=== PATIENT | male | born 1970 | race Two or more races ===

== ENCOUNTER 2017-08-15 21:05 | Inpatient (IN) | payer BC ==
[2017-08-15] MEDS ORDERED: KETOROLAC 30 MG/ML 1 ML VIAL IVP STA (21:25)
[2017-08-15] MEDS ORDERED: RX INFO: IV CONTRAST WAS GIVEN 1 EACH MISC MISCELLANE PRN (21:25)
[2017-08-15] MEDS ORDERED: SODIUM CHLORIDE 0.9% 1,000 ML IV STA (21:25)
--- NOTE | 2017-08-15 21:28 | ED ---
Abdominal Pain HPI <Carroll Alves - Last Filed: 08/15/17 22:53> - General Source: patient Mode of arrival: ambulatory Limitations: no limitations <Tiffanie Valdez - Last Filed: 08/16/17 00:49> - General Chief Complaint: Abdominal Pain Stated Complaint: abdominal pain Time Seen by Provider: 08/15/17 21:20 - History of Present Illness Initial Comments: 47-year-old male patient presents to the emergency department today for evaluation of diarrhea and lower abdominal pain. Patient states he has had 3-4 liquidy bowel movements per day for the last 2-3 days. States that this evening he started to have sharp stabbing pain in his lower abdomen. Patient denies any hematochezia or melena. Denies any nausea or vomiting. Denies any fevers or chills with this. Patient denies history of similar symptoms. 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 Denies any sick contacts. Patient denies any recent rash, shortness breath, chest pain, back pain, numbness, tingling, dizziness, weakness, hematuria, dysuria, urinary urgency, urinary frequency, headache, visual changes, or any other complaints. (Tiffanie Valdez) - Related Data Home Medications Medication Instructions Recorded Confirmed Albuterol Inhaler [Ventolin Hfa 2 puff INHALATION RT-Q6H PRN 08/15/17 08/15/17 Inhaler] Dexlansoprazole [Dexilant] 60 mg PO DAILY 08/15/17 08/15/17 Ipratropium/Albuterol Sulfate 1 puff INHALATION RT-QID 08/15/17 08/15/17 [Combivent Respimat Inhaler] Allergies Allergy/AdvReac Type Severity Reaction Status Date / Time No Known Allergies Allergy Verified 08/15/17 22:04 Review of Systems ROS Other: All systems not noted in ROS Statement are negative. <Carroll Alves - Last Filed: 08/15/17 22:53> ROS Other: All systems not noted in ROS Statement are negative. <Tiffanie Valdez - Last Filed: 08/16/17 00:49> ROS Statement: Those systems with pertinent positive or pertinent negative responses have been documented in the HPI. Past Medical History Past Medical History: Asthma History of Any Multi-Drug Resistant Organisms: None Reported Past Surgical History: Tonsillectomy Past Psychological History: No Psychological Hx Reported Smoking Status: Current every day smoker Past Alcohol Use History: None Reported Past Drug Use History: None Reported <Tiffanie Valdez - Last Filed: 08/16/17 00:49> General Exam Limitations: no limitations General appearance: alert, in no apparent distress, other (This is a well- developed, well-nourished adult male patient in no acute distress. Vital signs upon presentation are temperature 97.6F, pulse 68, respirations 20, blood pressure 111/92, pulse ox 97% on room air.) Eye exam: Present: normal appearance, PERRL, EOMI. Absent: scleral icterus, conjunctival injection, periorbital swelling ENT exam: Present: normal exam, normal oropharynx, mucous membranes moist Respiratory exam: Present: normal lung sounds bilaterally. Absent: respiratory distress, wheezes, rales, rhonchi, stridor Cardiovascular Exam: Present: regular rate, normal rhythm, normal heart sounds. Absent: systolic murmur, diastolic murmur, rubs, gallop, clicks GI/Abdominal exam: Present: soft, tenderness (Left lower quadrant tenderness), normal bowel sounds. Absent: distended, guarding, rebound, rigid Neurological exam: Present: alert, oriented X3, CN II-XII intact Psychiatric exam: Present: normal affect, normal mood Skin exam: Present: warm, dry, intact, normal color. Absent: rash <Tiffanie Valdez - Last Filed: 08/16/17 00:49> Vital Signs 08/15/17 08/15/17 08/16/17 21:10 22:51 00:03 Temperature 97.6 F 97.1 F L 97.7 F Pulse Rate 68 62 57 L Respiratory 20 18 18 Rate Blood Pressure 111/92 124/76 119/76 O2 Sat by Pulse 97 99 98 Oximetry Medical Decision Making - Lab Data Result diagrams: 08/15/17 21:36 08/15/17 21:36 <Carroll Alves - Last Filed: 08/15/17 22:53> - Lab Data Result diagrams: 08/15/17 21:36 08/15/17 21:36 - Radiology Data Radiology results: report reviewed, image reviewed <Tiffanie Valdez - Last Filed: 08/16/17 00:49> - Medical Decision Making I saw this patient in conjunction with the physician assistant professor sculpture. I performed independent history and physical exam. Agree with case management. (Carroll Alves) 47-year-old male patient presents to the emergency department today for evaluation of left lower quadrant abdominal pain and diarrhea 3-4 days. Physical examination did reveal tenderness to the left lower quadrant. Patient was afebrile, vital signs stable. Labs reviewed and are unremarkable. We did perform computed tomography scan of the abdomen and pelvis given his left lower quadrant tenderness and this did show possible diverticulitis with free air near the sigmoid and descending colon. My attending Dr. Alves did speak to Dr. Mccord the surgeon fire protection inspector, she accepts admission. Patient is to be nothing by mouth except for medications and water. Levaquin and Flagyl will be started. IV fluids will be provided. All results and plan discussed with patient. (Tiffanie Valdez) - Lab Data Lab Results 08/15/17 08/15/17 08/15/17 Range/Units 21:36 21:36 22:50 WBC 9.6 (3.8-10.6) k/uL RBC 5.65 (4.30-5.90) m/uL Hgb 17.1 (13.0-17.5) gm/dL Hct 51.3 (39.0-53.0) % MCV 90.8 (80.0-100.0) fL MCH 30.2 (25.0-35.0) pg MCHC 33.3 (31.0-37.0) g/dL RDW 13.3 (11.5-15.5) % Plt Count 235 (150-450) k/uL Neutrophils % 60 % Lymphocytes % 31 % Monocytes % 4 % Eosinophils % 1 % Basophils % 1 % Neutrophils # 5.8 (1.3-7.7) k/uL Lymphocytes # 3.0 (1.0-4.8) k/uL Monocytes # 0.4 (0-1.0) k/uL Eosinophils # 0.1 (0-0.7) k/uL Basophils # 0.1 (0-0.2) k/uL Sodium 143 (137-145) mmol/L Potassium 4.8 (3.5-5.1) mmol/L Chloride 105 (98-107) mmol/L Carbon Dioxide 26 (22-30) mmol/L Anion Gap 12 mmol/L BUN 20 (9-20) mg/dL Creatinine 0.84 (0.66-1.25) mg/dL Est GFR (CKD-EPI)AfAm >90 (>60 ml/min/1.73 sqM) Est GFR (CKD-EPI)NonAf >90 (>60 ml/min/1.73 sqM) Glucose 83 (74-99) mg/dL Calcium 9.6 (8.4-10.2) mg/dL Total Bilirubin 0.5 (0.2-1.3) mg/dL AST 23 (17-59) U/L ALT 34 (21-72) U/L Alkaline Phosphatase 42 (38-126) U/L Total Protein 7.2 (6.3-8.2) g/dL Albumin 4.6 (3.5-5.0) g/dL Amylase 59 (30-110) U/L Lipase 93 (23-300) U/L Urine Color Yellow Urine Appearance Clear (Clear) Urine pH 6.0 (5.0-8.0) Ur Specific Ware 1.033 (1.001-1.035) Urine Protein Negative (Negative) Urine Glucose (UA) Negative (Negative) Urine Ketones Negative (Negative) Urine Blood Negative (Negative) Urine Nitrite Negative (Negative) Urine Bilirubin Negative (Negative) Urine Urobilinogen <2.0 (<2.0) mg/dL Ur Leukocyte Esterase Negative (Negative) - Radiology Data CT of the abdomen and pelvis was obtained. Report was reviewed in its entirety. Impression by Dr. Spivey shows inflammatory changes around the lower descending colon and proximal sigmoid colon consistent with colitis or diverticulitis. There is also localized free air on the bowel. Follow-up is recommended. (Tiffanie Valdez) Disposition <Carroll Alves - Last Filed: 08/15/17 22:53> Decision to Admit Reason: Admit from EC Decision Date: 08/15/17 Decision Time: 23:36 <Tiffanie Valdez - Last Filed: 08/16/17 00:49> Clinical Impression: Perforated diverticulum, Diverticulitis Disposition: ADMITTED IP TO THIS [facility] Condition: Serious
[2017-08-15 21:47] LABS: Basophils # (A) 0.1 k/uL (0-0.2); Basophils % (A) 1 %; Eosinophils # (A) 0.1 k/uL (0-0.7); Eosinophils % (A) 1 %; HCT 51.3 % (39.0-53.0); HGB 17.1 gm/dL (13.0-17.5); Lymphocytes % (A) 31 %; MCH 30.2 pg (25.0-35.0); MCHC 33.3 g/dL (31.0-37.0); MCV 90.8 fL (80.0-100.0); Monocytes # (A) 0.4 k/uL (0-1.0); Monocytes % (A) 4 %; Neutrophils # (A) 5.8 k/uL (1.3-7.7); Neutrophils % (A) 60 %; Platelet Count 235 k/uL (150-450); RBC 5.65 m/uL (4.30-5.90); RDW 13.3 % (11.5-15.5); WBC 9.6 k/uL (3.8-10.6)
[2017-08-15 21:57] LABS: ALT 34 U/L (21-72); AST 23 U/L (17-59); Albumin 4.6 g/dL (3.5-5.0); Alkaline Phosphatase 42 U/L (38-126); Amylase 59 U/L (30-110); Anion Gap 12 mmol/L; Blood Urea Nitrogen 20 mg/dL (9-20); Calcium 9.6 mg/dL (8.4-10.2); Carbon Dioxide 26 mmol/L (22-30); Chloride 105 mmol/L (98-107); Glucose 83 mg/dL (74-99); Lipase 93 U/L (23-300); Potassium 4.8 mmol/L (3.5-5.1); Sodium 143 mmol/L (137-145); Total Bilirubin 0.5 mg/dL (0.2-1.3); Total Protein 7.2 g/dL (6.3-8.2)
[2017-08-15] MEDS ORDERED: MORPHINE SULFATE 4 MG/ML SYRINGE IVP STA (22:44)
--- NOTE | 2017-08-15 22:52 | CT ---
EXAMINATION TYPE: CT abdomen pelvis w con DATE OF EXAM: 08/15/2017 COMPARISON: NONE HISTORY: LLQ pain today CT DLP: 863 mGycm Automated exposure control for dose reduction was used. TECHNIQUE: Helical acquisition of images was performed from the lung bases through the pelvis. CONTRAST: Performed without Oral Contrast and with IV Contrast, patient injected with 100 mL of Isovue 300. FINDINGS: The lung bases are clear. There is no pleural effusion. Heart size is normal. Liver spleen pancreas gallbladder appear normal. Bile ducts are not dilated. There is no adrenal mass . Kidneys show satisfactory contrast opacification. There is no hydronephrosis. There is no retroperi toneal adenopathy. Abdominal aorta has normal size. There is no aneurysm. There is mild fat stranding around the proximal sigmoid colon and descending colon. Bladder distends smoothly. There is a 1 cm cortical cyst on the lateral right kidney. There is no ascites. There is no evidence of a pelvic mass. Bony structures are intact. There appears to be localized free air around the lower descending colon. The small bowel appears normal. Appendix appears normal. IMPRESSION: THERE ARE INFLAMMATORY CHANGES AROUND THE LOWER DESCENDING COLON AND PROXIMAL SIGMOID COLON CONSISTEN T WITH COLITIS OR DIVERTICULITIS. THERE IS ALSO LOCALIZED FREE AIR AROUND THE BOWEL. FOLLOW-UP IS REC OMMENDED. THIS EXAM WAS DISCUSSED WITH THE ER PHYSICIAN AT 10:45 PM.
[2017-08-15 23:04] LABS: Appearance,Urine Clear (Clear); Bilirubin,Urine Negative (Negative); Blood,Urine Negative (Negative); Color,Urine Yellow; Glucose,Urine (UA) Negative (Negative); Ketones,Urine Negative (Negative); Leukocyte Esterase,Urine Negative (Negative); Nitrite,Urine Negative (Negative); Protein,Urine Negative (Negative); Specific Gravity,Urine 1.033 (1.001-1.035); Urobilinogen,Urine <2.0 mg/dL (<2.0)
[2017-08-15] MEDS ORDERED: ONDANSETRON 4 MG/2 ML VIAL IVP PRN (23:32)
[2017-08-15] MEDS ORDERED: NALOXONE 0.4 MG/ML 1 ML VIAL IV PRN (23:32)
[2017-08-15] MEDS ORDERED: LEVOFLOXACIN 500MG-D5W PMX 500 MG in DEXTROSE/WATER 1 100ML.BAG IVPB STA (23:34)
[2017-08-15] MEDS ORDERED: LEVOFLOXACIN 500MG-D5W PMX 500 MG in DEXTROSE/WATER 1 100ML.BAG IVPB SCH (23:45)
[2017-08-15] MEDS ORDERED: LEVOFLOXACIN 750MG-D5W PMX 750 MG in DEXTROSE/WATER 1 150ML.BAG IVPB STA (23:49)
[2017-08-16] MEDS: SODIUM CHLORIDE 0.9% 1,000 ML IV SCH ×3 (00:05→14:05)
[2017-08-16] MEDS: metroNIDAZOLE-NS PMX 500 MG in SALINE 1 100ML.BAG IVPB STA ×2 (01:07→02:32)
[2017-08-16] MEDS: MORPHINE SULFATE 4 MG/ML SYRINGE IV PRN ×3 (03:49→12:16)
[2017-08-16] MEDS: metroNIDAZOLE-NS PMX 500 MG in SALINE 1 100ML.BAG IVPB SCH ×2 (07:57→16:33)
[2017-08-16 08:33] LABS: Basophils # (A) 0.1 k/uL (0-0.2); Basophils % (A) 1 %; Eosinophils # (A) 0.1 k/uL (0-0.7); Eosinophils % (A) 1 %; HCT 46.6 % (39.0-53.0); HGB 15.3 gm/dL (13.0-17.5); Lymphocytes # (A) 2.4 k/uL (1.0-4.8); Lymphocytes % (A) 23 %; MCH 29.9 pg (25.0-35.0); MCHC 32.9 g/dL (31.0-37.0); MCV 91.1 fL (80.0-100.0); Mean Platelet Volume 7.5; Monocytes # (A) 0.5 k/uL (0-1.0); Monocytes % (A) 5 %; Neutrophils # (A) 7.2 k/uL (1.3-7.7); Neutrophils % (A) 69 %; Platelet Count 226 k/uL (150-450); RBC 5.11 m/uL (4.30-5.90); RDW 13.3 % (11.5-15.5); WBC 10.4 k/uL (3.8-10.6)
[2017-08-16 09:03] LABS: Anion Gap 8 mmol/L; Blood Urea Nitrogen 21 mg/dL (9-20); Calcium 8.9 mg/dL (8.4-10.2); Carbon Dioxide 26 mmol/L (22-30); Chloride 108 mmol/L (98-107); Glucose 86 mg/dL (74-99); Potassium 4.7 mmol/L (3.5-5.1); Sodium 142 mmol/L (137-145)
[2017-08-16 11:48] VITALS: BMI 28.5
[2017-08-16] MEDS ORDERED: ALBUTEROL NEBULIZED 2.5 MG/3 ML INHALATION PRN (12:59)
[2017-08-16] MEDS ORDERED: NON-FORMULARY DRUG (Dexlansoprazole [Dexilant] 60 MG) PO SCH (13:00)
--- NOTE | 2017-08-16 13:12 | P.GSHP ---
<Mariaelena Shafer M - Last Filed: 08/16/17 12:52> History of Present Illness H&P Date: 08/16/17 47-year-old male presented on the day of admission to the emergency room to be evaluated for a chief complaint of developing intolerable intractable severe left lower quadrant abdominal pain. Patient stated that the symptoms started 3 days prior became more symptomatic and on the day of admission to the emergency room could not tolerate the pain. 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 States it was no blood in the stool. Patient denies any prior episodes. States over the last several days has had a poor appetite with poor oral intake due to the " left lower quadrant abdominal pain Patient states he has not had a colonoscopy in the past. Past surgical history of tonsillectomy, past medical history asthma. In the emergency room CAT scan of the abdomen pelvis showed diverticulitis with questionable free air around the lower descending colon patient was admitted to the services of the attending with IV fluid and IV antibiotics Flagyl and Levaquin initiated - Review of Systems Comment: Essentially unremarkable except as mentioned in the present illness Past Medical History Past Medical History: Asthma History of Any Multi-Drug Resistant Organisms: None Reported Past Surgical History: Tonsillectomy Past Anesthesia/Blood Transfusion Reactions: No Reported Reaction Past Psychological History: No Psychological Hx Reported Smoking Status: Current every day smoker Past Alcohol Use History: None Reported Past Drug Use History: None Reported Medications and Allergies Home Medications Medication Instructions Recorded Confirmed Type Albuterol Inhaler [Ventolin Hfa 2 puff INHALATION RT-Q6H PRN 08/15/17 08/15/17 History Inhaler] Dexlansoprazole [Dexilant] 60 mg PO DAILY 08/15/17 08/15/17 History Ipratropium/Albuterol Sulfate 1 puff INHALATION RT-QID 08/15/17 08/15/17 History [Combivent Respimat Inhaler] Allergies Allergy/AdvReac Type Severity Reaction Status Date / Time No Known Allergies Allergy Verified 08/15/17 22:04 Surgical - Exam Vital Signs Temp Pulse Resp BP Pulse Ox 97.6 F 68 20 111/92 97 08/15/17 21:10 08/15/17 21:10 08/15/17 21:10 08/15/17 21:10 08/15/17 21:10 GENERAL APPEARANCE: 47-year-old male patient is alert, oriented x 3 states has left lower quadrant abdominal discomfort pain medication "decreases it but it still hurts VITAL SIGNS: Reviewed HEENT: Head is normocephalic and atraumatic. Pupils are equal and reactive. The nares are patent. Oropharynx is clear without lesions. NECK: Supple without lymphadenopathy. Traches midline. HEART: S1, S2. Regular rate and rhythm. No murmur noted denying chest pain LUNGS: No crackles or wheezes are heard. Adequate air movement bilaterally ABDOMEN: Soft, mild tenderness to the left lower quadrant nondistended with good bowel sounds. No peritoneal signs. No palpable organomegaly or masses. EXTREMITIES: Normal skin color and turgor. No cyanosis, rash, ulceration, clubbing or edema. Radial pedal pulses are 2/4 bilaterally. NEUROLOGICAL: No focal deficits. Strength and sensation are grossly intact. Results - Labs 08/16/17 08:01 08/16/17 08:01 Abnormal Lab Results - Last 24 Hours (Table) 08/16/17 Range/Units 08:01 Chloride 108 H (98-107) mmol/L BUN 21 H (9-20) mg/dL Diabetes panel 08/15/17 08/16/17 Range/Units 21:36 08:01 Sodium 143 142 (137-145) mmol/L Potassium 4.8 4.7 (3.5-5.1) mmol/L Chloride 105 108 H (98-107) mmol/L Carbon Dioxide 26 26 (22-30) mmol/L BUN 20 21 H (9-20) mg/dL Creatinine 0.84 0.84 (0.66-1.25) mg/dL Glucose 83 86 (74-99) mg/dL Calcium 9.6 8.9 (8.4-10.2) mg/dL AST 23 (17-59) U/L ALT 34 (21-72) U/L Alkaline Phosphatase 42 (38-126) U/L Total Protein 7.2 (6.3-8.2) g/dL Albumin 4.6 (3.5-5.0) g/dL Calcium panel 08/15/17 08/16/17 Range/Units 21:36 08:01 Calcium 9.6 8.9 (8.4-10.2) mg/dL Albumin 4.6 (3.5-5.0) g/dL Pituitary panel 08/15/17 08/16/17 Range/Units 21:36 08:01 Sodium 143 142 (137-145) mmol/L Potassium 4.8 4.7 (3.5-5.1) mmol/L Chloride 105 108 H (98-107) mmol/L Carbon Dioxide 26 26 (22-30) mmol/L BUN 20 21 H (9-20) mg/dL Creatinine 0.84 0.84 (0.66-1.25) mg/dL Glucose 83 86 (74-99) mg/dL Calcium 9.6 8.9 (8.4-10.2) mg/dL Adrenal panel 08/15/17 08/16/17 Range/Units 21:36 08:01 Sodium 143 142 (137-145) mmol/L Potassium 4.8 4.7 (3.5-5.1) mmol/L Chloride 105 108 H (98-107) mmol/L Carbon Dioxide 26 26 (22-30) mmol/L BUN 20 21 H (9-20) mg/dL Creatinine 0.84 0.84 (0.66-1.25) mg/dL Glucose 83 86 (74-99) mg/dL Calcium 9.6 8.9 (8.4-10.2) mg/dL Total Bilirubin 0.5 (0.2-1.3) mg/dL AST 23 (17-59) U/L ALT 34 (21-72) U/L Alkaline Phosphatase 42 (38-126) U/L Total Protein 7.2 (6.3-8.2) g/dL Albumin 4.6 (3.5-5.0) g/dL Assessment and Plan Assessment: Impression Present on admission left lower quadrant abdominal pain likely due to acute diverticulitis Present on admission mild leukocytosis suspect reactive Present on admission nausea vomiting frequent stooling suspect due to acute diverticulitis CAT scan abdomen and pelvis images show possible diverticulitis with free air near the sigmoid and descending colon Asthma with no evidence of an exacerbation Plan Increase IV fluid 125 an hour Ice chips with medication otherwise nothing by mouth IV antibiotic Flagyl and Levaquin as ordered Pain control DVT and GI prophylaxis Further surgical recommendations pending will follow clinical course closely The above impression and plan of care have been discussed and directed by signing physician. Mariaelena Shafer nurse practitioner acting as scribe for signing physician. <FlexMarli N - Last Filed: 08/16/17 15:14> Surgical - Exam Vital Signs Temp Pulse Resp BP Pulse Ox 97.6 F 68 20 111/92 97 08/15/17 21:10 08/15/17 21:10 08/15/17 21:10 08/15/17 21:10 08/15/17 21:10 Results - Labs 08/16/17 08:01 08/16/17 08:01 Abnormal Lab Results - Last 24 Hours (Table) 08/16/17 Range/Units 08:01 Chloride 108 H (98-107) mmol/L BUN 21 H (9-20) mg/dL Diabetes panel 08/15/17 08/16/17 Range/Units 21:36 08:01 Sodium 143 142 (137-145) mmol/L Potassium 4.8 4.7 (3.5-5.1) mmol/L Chloride 105 108 H (98-107) mmol/L Carbon Dioxide 26 26 (22-30) mmol/L BUN 20 21 H (9-20) mg/dL Creatinine 0.84 0.84 (0.66-1.25) mg/dL Glucose 83 86 (74-99) mg/dL Calcium 9.6 8.9 (8.4-10.2) mg/dL AST 23 (17-59) U/L ALT 34 (21-72) U/L Alkaline Phosphatase 42 (38-126) U/L Total Protein 7.2 (6.3-8.2) g/dL Albumin 4.6 (3.5-5.0) g/dL Calcium panel 08/15/17 08/16/17 Range/Units 21:36 08:01 Calcium 9.6 8.9 (8.4-10.2) mg/dL Albumin 4.6 (3.5-5.0) g/dL Pituitary panel 08/15/17 08/16/17 Range/Units 21:36 08:01 Sodium 143 142 (137-145) mmol/L Potassium 4.8 4.7 (3.5-5.1) mmol/L Chloride 105 108 H (98-107) mmol/L Carbon Dioxide 26 26 (22-30) mmol/L BUN 20 21 H (9-20) mg/dL Creatinine 0.84 0.84 (0.66-1.25) mg/dL Glucose 83 86 (74-99) mg/dL Calcium 9.6 8.9 (8.4-10.2) mg/dL Adrenal panel 08/15/17 08/16/17 Range/Units 21:36 08:01 Sodium 143 142 (137-145) mmol/L Potassium 4.8 4.7 (3.5-5.1) mmol/L Chloride 105 108 H (98-107) mmol/L Carbon Dioxide 26 26 (22-30) mmol/L BUN 20 21 H (9-20) mg/dL Creatinine 0.84 0.84 (0.66-1.25) mg/dL Glucose 83 86 (74-99) mg/dL Calcium 9.6 8.9 (8.4-10.2) mg/dL Total Bilirubin 0.5 (0.2-1.3) mg/dL AST 23 (17-59) U/L ALT 34 (21-72) U/L Alkaline Phosphatase 42 (38-126) U/L Total Protein 7.2 (6.3-8.2) g/dL Albumin 4.6 (3.5-5.0) g/dL
[2017-08-16] MEDS: PANTOPRAZOLE 40 MG/10 ML VIAL IVP SCH ×2 (14:05→16:34)
--- NOTE | 2017-08-16 15:13 | P.PN ---
Progress Note - Text Progress Note Date: 08/16/17 Patient seen and evaluated. Nontoxic in appearance. Pain is controlled. He reports epigastric pain for several days with GERD. Discussion of laparotomy and colostomy were described. Patient is clinically stable. Recommend bowel rest and antibiotics.
[2017-08-16] MEDS: IPRATROPIUM-ALBUTEROL 3 ML NEB INHALATION SCH ×2 (15:57→19:40)
[2017-08-16] MEDS: LEVOFLOXACIN 750MG-D5W PMX 750 MG in DEXTROSE/WATER 1 150ML.BAG IVPB SCH (23:09)
[2017-08-17] MEDS: metroNIDAZOLE-NS PMX 500 MG in SALINE 1 100ML.BAG IVPB SCH ×4 (00:46→23:59)
[2017-08-17] MEDS: IPRATROPIUM-ALBUTEROL 3 ML NEB INHALATION SCH ×5 (02:37→19:53)
[2017-08-17] MEDS: SODIUM CHLORIDE 0.9% 1,000 ML IV SCH ×6 (06:00→22:03)
[2017-08-17] MEDS: PANTOPRAZOLE 40 MG/10 ML VIAL IVP SCH (08:00)
--- NOTE | 2017-08-17 12:21 | P.PN ---
Subjective Progress Note Date: 08/17/17 Principal diagnosis: Perforated diverticulitis The patient is a 47 year old male who presented with localized perforated diverticulitis. He is feeling much better. He has ambulated over 50 times in less than 3 hrs! He complains mostly of epigastric and substernal pain for which has been ongoing for weeks and unimproved with antacids. No fevers or chills. He has passed flatus and now has soft bowel movement. Objective - Vital Signs Vital signs: Vital Signs Temp 98.2 F 08/17/17 07:58 Pulse 68 08/17/17 07:58 Resp 18 08/17/17 07:58 BP 114/61 08/17/17 07:58 Pulse Ox 98 08/17/17 07:58 Intake & Output 08/16/17 08/17/17 08/17/17 18:59 06:59 18:59 Intake Total 1500 Output Total 500 Balance -500 1500 Weight 95.254 kg Intake: Intake, IV Titration 1500 Amount Levofloxacin 750Mg-D5w 150 Pmx 750 mg In Dextrose/ Water 1 150ml.bag @ 100 mls/hr IVPB Q24H [facility] Rx#: [id number] Sodium Chloride 0.9% 1, 1250 000 ml @ 125 mls/hr IV . Q8H [facility] Rx#:[id number] metroNIDAZOLE-NS PMX 500 100 mg In Saline 1 100ml.bag @ 100 mls/hr IVPB Q8HR [facility] Rx#:[id number] Output: Urine 500 Other: Voiding Method Urinal Toilet Toilet Urinal Urinal # Voids 1 - Exam GENERAL: Well-developed pleasant in no acute distress. HEENT: No scleral icterus. Extraocular movements grossly intact. Moist buccal mucosa. NECK: Supple without lymphadenopathy. CHEST: Unlabored respirations. Equal bilateral excursions. CARDIOVASCULAR: Regular rate and rhythm. Distal 2+ pulses. ABDOMEN: Soft, nondistended. No peritoneal signs. Minimal left lower quadrant pain moderately improved. Has present epigastric pain. MUSCULOSKELETAL: No clubbing, cyanosis, or edema. NEURO: No focal or lateralizing signs PSYCH: Appropriate affect. Alert and oriented to person, place, and time. SKIN: Well perfused and good skin turgor. No jaundice. - Labs CBC & Chem 7: 08/16/17 08:01 08/16/17 08:01 Assessment and Plan (1) Sigmoid diverticulitis Current Visit: Yes Status: Acute Code(s): K57.32 - DVTRCLI OF LG INT W/O PERFORATION OR ABSCESS W/O BLEEDING SNOMED Code(s): 255928981 (2) Left lower quadrant pain Current Visit: Yes Status: Acute Code(s): R10.32 - LEFT LOWER QUADRANT PAIN SNOMED Code(s): 156117937 (3) Epigastric abdominal pain Current Visit: Yes Status: Acute Code(s): R10.13 - EPIGASTRIC PAIN SNOMED Code(s): 98174628 (4) Substernal pain Current Visit: Yes Status: Acute Code(s): R07.2 - PRECORDIAL PAIN SNOMED Code(s): 0459203 (5) Perforated diverticulum Current Visit: Yes Status: Acute Code(s): K57.80 - DVTRCLI OF INTEST, PART UNSP, W PERF AND ABSCESS W/O BLEED SNOMED Code(s): 26808770 Plan: 1. His long standing chest and epigastric discomfort despite antacid therapy is highly suspicious for gallbladder etiology. 2. Will obtain HIDA scan and US of the gallbladder. 3. GI cocktail for symptoms. 4. Seperately, will re-evaluated cardiac and pulmonary causes. 5. Potentially, an esophageal dysmotility may be the cause of his symptoms. For further evaluation, outpatient manometry advised. 6. Will start liquid diet after tests today. 7. Recommend EGD. 8. Potential discharge in 48 to 72 hours pending clinical response. 9. Elective sigmoid resection feasible once acute attack resolves.
[2017-08-17 12:45] LABS: Basophils # (A) 0.1 k/uL (0-0.2); Basophils % (A) 0 %; Eosinophils % (A) 0 %; HGB 16.3 gm/dL (13.0-17.5); Lymphocytes # (A) 2.7 k/uL (1.0-4.8); Lymphocytes % (A) 25 %; MCH 29.9 pg (25.0-35.0); MCHC 33.4 g/dL (31.0-37.0); MCV 89.7 fL (80.0-100.0); Mean Platelet Volume 7.5; Monocytes # (A) 0.5 k/uL (0-1.0); Monocytes % (A) 5 %; Neutrophils # (A) 7.5 k/uL (1.3-7.7); Neutrophils % (A) 68 %; Platelet Count 264 k/uL (150-450); RBC 5.46 m/uL (4.30-5.90); RDW 13.2 % (11.5-15.5)
[2017-08-17] MEDS ORDERED: MAG HYDROX/AL HYDROX/SIMETH 30 ML, HYOSCYAMINE ELIXIR 10 ML, CIMETIDINE HCL 300 MG PO ONE ×3 (13:00)
--- NOTE | 2017-08-17 16:39 | NM ---
EXAMINATION TYPE: NM hepatobiliary wo EF DATE OF EXAM: 08/17/2017 COMPARISON: CT 08/15/2017 HISTORY: Cholecystitis TECHNIQUE: After the intravenous administration of 5.23 mCi Tc 99m Mebrofenin hepatobiliary scintigra phy is performed. Immediate images post injection. FINDINGS: The liver shows prompt homogenous uptake of the radio pharmaceutical. Gallbladder is not visualized d uring the first hour. Small bowel activity is detected by 14 minutes. Biliary activity detected by 10 minutes. Delayed images show diminutive gallbladder. This is noted at 2 hours. IMPRESSION: Correlate for possible chronic cholecystitis. Ejection fraction was not calculated due to delayed visualization and lack of radiopharmaceutical within the liver on two-hour images.
--- NOTE | 2017-08-17 16:47 | XR ---
EXAMINATION TYPE: XR chest 2V DATE OF EXAM: 08/17/2017 COMPARISON: NONE HISTORY: Chest pain TECHNIQUE: Frontal and lateral views of the chest are obtained. FINDINGS: There is no focal air space opacity, pleural effusion, or pneumothorax seen. The cardiac silhouette size is within normal limits. The osseous structures are intact. IMPRESSION: No acute cardiopulmonary process.
--- NOTE | 2017-08-17 17:50 | US ---
EXAMINATION TYPE: US gallbladder DATE OF EXAM: 08/17/2017 COMPARISON: CT 08/15/2017 CLINICAL HISTORY: Cholecystitis. epigastric pressure EXAM MEASUREMENTS: Liver Length: Enlarged Gallbladder Wall: 0.2 cm CBD: 0.4 cm CHD: 0.3 cm Right Kidney: 12.5 x 6.9 x 4.9 cm Pancreas: Obscured by bowel gas Liver: There is coarse echotexture present Gallbladder: wnl Evidence for sonographic Park's sign: neg CBD: wnl CHD: wnl Right Kidney: Lateral hypoechoic appearing lesion with septation= 1.2 x 1.0x 1.2 cm, not simple cyst ic, cortical medullary differentiation is maintained There is no ascites. IMPRESSION: Hepatomegaly, there may be underlying hepatocellular disease or hepatic steatosis. Indete rminate hypoechoic focus associated with the right kidney, follow-up recommended.
[2017-08-17] MEDS: MAG HYDROX/AL HYDROX/SIMETH 30 ML, HYOSCYAMINE ELIXIR 10 ML, CIMETIDINE HCL 300 MG, LID... PO SCH ×4 (21:57)
[2017-08-17] MEDS: LEVOFLOXACIN 750MG-D5W PMX 750 MG in DEXTROSE/WATER 1 150ML.BAG IVPB SCH (21:58)
[2017-08-18] MEDS: metroNIDAZOLE-NS PMX 500 MG in SALINE 1 100ML.BAG IVPB SCH ×2 (07:18→16:24)
[2017-08-18] MEDS: PANTOPRAZOLE 40 MG/10 ML VIAL IVP SCH (07:18)
[2017-08-18] MEDS: IPRATROPIUM-ALBUTEROL 3 ML NEB INHALATION SCH ×3 (07:24→18:54)
[2017-08-18 08:31] LABS: Basophils # (A) 0.1 k/uL (0-0.2); Basophils % (A) 1 %; Eosinophils # (A) 0.1 k/uL (0-0.7); Eosinophils % (A) 1 %; HCT 47.3 % (39.0-53.0); HGB 15.6 gm/dL (13.0-17.5); Lymphocytes # (A) 2.1 k/uL (1.0-4.8); Lymphocytes % (A) 26 %; MCH 29.8 pg (25.0-35.0); MCHC 32.9 g/dL (31.0-37.0); MCV 90.6 fL (80.0-100.0); Mean Platelet Volume 7.5; Monocytes # (A) 0.4 k/uL (0-1.0); Monocytes % (A) 5 %; Neutrophils # (A) 5.3 k/uL (1.3-7.7); Neutrophils % (A) 66 %; Platelet Count 243 k/uL (150-450); RBC 5.22 m/uL (4.30-5.90); RDW 13.2 % (11.5-15.5)
[2017-08-18] MEDS: SODIUM CHLORIDE 0.9% 1,000 ML IV SCH ×2 (10:22→16:24)
[2017-08-18] MEDS: MAG HYDROX/AL HYDROX/SIMETH 30 ML, HYOSCYAMINE ELIXIR 10 ML, CIMETIDINE HCL 300 MG, LID... PO SCH ×8 (11:38→20:46)
--- NOTE | 2017-08-18 12:20 | P.PN ---
Subjective Progress Note Date: 08/18/17 Principal diagnosis: Perforated diverticulitis The patient is a 47 year old male who presented with localized perforated diverticulitis. His left lower quadrant pain continues to improve. He reports mild soreness. He reports moderate and persistent epigastric pain despite high dose antacids. Multiple studies performed confirming chronic cholecystitis. He also reports eating moderate amount of carbohydrates with ultrasound of the abdomen demonstrating hepatomegaly as he denies drinking any alcohol. Objective - Vital Signs Vital signs: Vital Signs Temp 98.1 F 08/18/17 07:00 Pulse 61 08/18/17 07:00 Resp 16 08/18/17 07:00 BP 113/60 08/18/17 07:00 Pulse Ox 97 08/18/17 07:00 Intake & Output 08/17/17 08/18/17 08/18/17 18:59 06:59 18:59 Intake Total 250 Balance 250 Weight 95.254 kg Intake: Intake, IV Titration 250 Amount Sodium Chloride 0.9% 1, 250 000 ml @ 125 mls/hr IV . Q8H [facility] Rx#:[id number] Other: Voiding Method Toilet Toilet Toilet Urinal Urinal # Voids 2 2 # Bowel Movements 1 - Exam GENERAL: Well-developed pleasant in no acute distress. HEENT: No scleral icterus. Extraocular movements grossly intact. Moist buccal mucosa. NECK: Supple without lymphadenopathy. CHEST: Unlabored respirations. Equal bilateral excursions. CARDIOVASCULAR: Regular rate and rhythm. Distal 2+ pulses. ABDOMEN: Soft, nondistended. No peritoneal signs. Minimal left lower quadrant pain improved from yesterday. Moderate epigastric pain. MUSCULOSKELETAL: No clubbing, cyanosis, or edema. NEURO: No focal or lateralizing signs PSYCH: Appropriate affect. Alert and oriented to person, place, and time. SKIN: Well perfused and good skin turgor. No jaundice. - Labs CBC & Chem 7: 08/18/17 08:04 08/16/17 08:01 Labs: Abnormal Lab Results - Last 24 Hours (Table) 08/17/17 Range/Units 12:24 WBC 11.0 H (3.8-10.6) k/uL - Imaging and Cardiology US - abdomen: report reviewed (Studies consistent with hepatomegaly and cholecystitis), image reviewed HIDA scan reviewed. Assessment and Plan (1) Sigmoid diverticulitis Current Visit: Yes Status: Acute Code(s): K57.32 - DVTRCLI OF LG INT W/O PERFORATION OR ABSCESS W/O BLEEDING SNOMED Code(s): 319429084 (2) Left lower quadrant pain Current Visit: Yes Status: Acute Code(s): R10.32 - LEFT LOWER QUADRANT PAIN SNOMED Code(s): 226435404 (3) Epigastric abdominal pain Current Visit: Yes Status: Acute Code(s): R10.13 - EPIGASTRIC PAIN SNOMED Code(s): 89302041 (4) Substernal pain Current Visit: Yes Status: Acute Code(s): R07.2 - PRECORDIAL PAIN SNOMED Code(s): 0096398 (5) Perforated diverticulum Current Visit: Yes Status: Acute Code(s): K57.80 - DVTRCLI OF INTEST, PART UNSP, W PERF AND ABSCESS W/O BLEED SNOMED Code(s): 48234983 (6) Cholecystitis Current Visit: Yes Status: Acute Code(s): K81.9 - CHOLECYSTITIS, UNSPECIFIED SNOMED Code(s): 62188960 Plan: 1. All studies and results were reviewed with the patient and his family at bedside confirming cholecystitis. 2. Surgical options of laparoscopy with cholecytectomy and possibility of drain placement were reviewed. 3. Robotic assisted approach described. 4. Patient wishes to proceed with cholecystectomy given the severity of his epigastric abdominal. 5. Off work for the next 7 days also described. 6. Low carbohydrate diet also reviewed for finding of fatty liver disease. 7. NPO after midnight.
[2017-08-18] MEDS: LEVOFLOXACIN 750MG-D5W PMX 750 MG in DEXTROSE/WATER 1 150ML.BAG IVPB SCH (23:05)
[2017-08-18 23:06] VITALS: PULSE 53
[2017-08-19] MEDS: metroNIDAZOLE-NS PMX 500 MG in SALINE 1 100ML.BAG IVPB SCH ×2 (00:55→07:41)
[2017-08-19] MEDS: SODIUM CHLORIDE 0.9% 1,000 ML IV SCH ×2 (00:59→07:42)
[2017-08-19] MEDS: IPRATROPIUM-ALBUTEROL 3 ML NEB INHALATION SCH ×3 (03:03→13:34)
[2017-08-19] MEDS ORDERED: ceFAZolin IN SWFI 2 GM/20 ML SYRINGE IVP ONE (05:00)
[2017-08-19] MEDS ORDERED: ACETAMINOPHEN IV (For NPO) 1,000 MG in EMPTY BAG 1 BAG IVPB ONE (05:00)
[2017-08-19] MEDS: MAG HYDROX/AL HYDROX/SIMETH 30 ML, HYOSCYAMINE ELIXIR 10 ML, CIMETIDINE HCL 300 MG, LID... PO SCH ×4 (07:40)
[2017-08-19] MEDS: PANTOPRAZOLE 40 MG/10 ML VIAL IVP SCH (07:41)
[2017-08-19 07:54] LABS: Basophils # (A) 0.1 k/uL (0-0.2); Basophils % (A) 1 %; Eosinophils # (A) 0.1 k/uL (0-0.7); Eosinophils % (A) 1 %; HCT 46.2 % (39.0-53.0); HGB 14.7 gm/dL (13.0-17.5); Lymphocytes # (A) 2.2 k/uL (1.0-4.8); Lymphocytes % (A) 31 %; MCHC 31.8 g/dL (31.0-37.0); MCV 91.2 fL (80.0-100.0); Mean Platelet Volume 7.4; Monocytes # (A) 0.4 k/uL (0-1.0); Monocytes % (A) 6 %; Neutrophils # (A) 4.2 k/uL (1.3-7.7); Neutrophils % (A) 59 %; Platelet Count 245 k/uL (150-450); RBC 5.06 m/uL (4.30-5.90); RDW 13.2 % (11.5-15.5); WBC 7.1 k/uL (3.8-10.6)
[2017-08-19 07:56] VITALS: BP 111/71; RESP 18; TEMP 97.7
[2017-08-19 08:20] LABS: ALT 36 U/L (21-72); AST 26 U/L (17-59); Albumin 3.7 g/dL (3.5-5.0); Alkaline Phosphatase 42 U/L (38-126); Anion Gap 13 mmol/L; Blood Urea Nitrogen 10 mg/dL (9-20); Carbon Dioxide 22 mmol/L (22-30); Chloride 108 mmol/L (98-107); Glucose 92 mg/dL (74-99); Potassium 4.5 mmol/L (3.5-5.1); Sodium 143 mmol/L (137-145); Total Bilirubin 0.7 mg/dL (0.2-1.3); Total Protein 6.2 g/dL (6.3-8.2)
--- NOTE | 2017-08-19 11:25 | P.PN ---
<Mariaelena Shafer Karen - Last Filed: 08/19/17 11:19> Subjective Progress Note Date: 08/19/17 47-year-old male seen ambulating on the unit. Patient states there is a significant improvement in his abdominal pain "it's all most gone. Patient states he is not inclined to have surgery this admission wants to wait be reevaluated in the outpatient setting patient's initial presentation was for left lower quadrant abdominal pain felt to be due to a localized perforated diverticulitis which has improved. Patient states there's mild soreness to the left lower quadrant. On a scale 1-10 rates it a 2. Additionally patient has had multiple imaging done and confirms cholecystitis. Ultrasound of the abdomen showed hepatomegaly. Patient states he does not drink alcohol. Active current tobacco abuse patient was tentatively scheduled today to undergo a lapscopic cholecystectomy Objective - Vital Signs Vital signs: Vital Signs Temp 97.7 F 08/19/17 07:08 Pulse 53 L 08/19/17 07:08 Resp 18 08/19/17 07:08 BP 111/71 08/19/17 07:08 Pulse Ox 97 08/19/17 07:08 Intake & Output 08/18/17 08/19/17 08/19/17 18:59 06:59 18:59 Intake Total 2455 1250 Output Total 500 Balance 1955 1250 Weight 95.254 kg Intake: Intake, IV Titration 1475 1250 Amount Levofloxacin 750Mg-D5w 150 Pmx 750 mg In Dextrose/ Water 1 150ml.bag @ 100 mls/hr IVPB Q24H [facility] Rx#: [id number] Sodium Chloride 0.9% 1, 1375 1000 000 ml @ 125 mls/hr IV . Q8H [facility] Rx#:[id number] metroNIDAZOLE-NS PMX 500 100 100 mg In Saline 1 100ml.bag @ 100 mls/hr IVPB Q8HR [facility] Rx#:[id number] Oral 980 0 Output: Urine 500 Other: Voiding Method Toilet Toilet Toilet # Voids 3 1 # Bowel Movements 1 - Exam Physical exam Pleasant 47-year-old up ambulating in the hallway states with activity is not experiencing any abdominal pain states the abdominal pain has pretty much resolved Lungs adequate air movement bilaterally clear Heart S1-S2 audible regular Abdomen flat not distended no facial grimacing with palpitation to the abdominal wall tolerating diet no nausea no vomiting no frequent stooling states discomfort to the left lower quadrant "almost gone Extremities no edema - Labs CBC & Chem 7: 08/19/17 07:25 08/19/17 07:25 Labs: Abnormal Lab Results - Last 24 Hours (Table) 08/19/17 Range/Units 07:25 Chloride 108 H (98-107) mmol/L Total Protein 6.2 L (6.3-8.2) g/dL Assessment and Plan Assessment: Impression Present on admission left lower quadrant abdominal pain likely due to acute sigmoid diverticulitis with perforated diverticulum Present on admission mild leukocytosis suspect reactive Present on admission nausea vomiting frequent stooling suspect due to acute sigmoid diverticulitis with perforated diverticulum CAT scan abdomen and pelvis images show possible diverticulitis with free air near the sigmoid and descending colon Asthma with no evidence of an exacerbation Active current every day smoker imaging studies confirm chronic cholecystitis Ultrasound abdomen demonstrating hepatomegaly Present on admission epigastric pain suspect due to chronic cholecystitis Plan Dietitian to provide information on diverticulum low-fat diet Advance diet Continue Flagyl and Levaquin as ordered Pain control DVT and GI prophylaxis Further surgical recommendations pending will follow clinical course closely Prepped for discharge within the next 24 hours The above impression and plan of care have been discussed and directed by signing physician. Mariaelena Shafer nurse practitioner acting as scribe for signing physician. <Marli Mccord N - Last Filed: 08/19/17 13:58> Objective - Vital Signs Vital signs: Vital Signs Temp 97.7 F 08/19/17 07:08 Pulse 53 L 08/19/17 07:08 Resp 18 08/19/17 07:08 BP 111/71 08/19/17 07:08 Pulse Ox 97 08/19/17 07:08 Intake & Output 08/18/17 08/19/17 08/19/17 18:59 06:59 18:59 Intake Total 2455 1250 1100 Output Total 500 Balance 1955 1250 1100 Weight 95.254 kg Intake: Intake, IV Titration 1475 1250 600 Amount Levofloxacin 750Mg-D5w 150 Pmx 750 mg In Dextrose/ Water 1 150ml.bag @ 100 mls/hr IVPB Q24H [facility] Rx#: [id number] Sodium Chloride 0.9% 1, 1375 1000 500 000 ml @ 125 mls/hr IV . Q8H [facility] Rx#:[id number] metroNIDAZOLE-NS PMX 500 100 100 100 mg In Saline 1 100ml.bag @ 100 mls/hr IVPB Q8HR [facility] Rx#:[id number] Oral 980 0 500 Output: Urine 500 Other: Voiding Method Toilet Toilet Toilet # Voids 3 1 2 # Bowel Movements 1 1 - Labs CBC & Chem 7: 08/19/17 07:25 08/19/17 07:25 Labs: Abnormal Lab Results - Last 24 Hours (Table) 08/19/17 Range/Units 07:25 Chloride 108 H (98-107) mmol/L Total Protein 6.2 L (6.3-8.2) g/dL Assessment and Plan (1) Sigmoid diverticulitis Current Visit: Yes Status: Acute Code(s): K57.32 - DVTRCLI OF LG INT W/O PERFORATION OR ABSCESS W/O BLEEDING SNOMED Code(s): 085231521 (2) Left lower quadrant pain Current Visit: Yes Status: Acute Code(s): R10.32 - LEFT LOWER QUADRANT PAIN SNOMED Code(s): 988997700 (3) Epigastric abdominal pain Current Visit: Yes Status: Acute Code(s): R10.13 - EPIGASTRIC PAIN SNOMED Code(s): 88263647 (4) Substernal pain Current Visit: Yes Status: Acute Code(s): R07.2 - PRECORDIAL PAIN SNOMED Code(s): 0163611 (5) Perforated diverticulum Current Visit: Yes Status: Acute Code(s): K57.80 - DVTRCLI OF INTEST, PART UNSP, W PERF AND ABSCESS W/O BLEED SNOMED Code(s): 06376061 (6) Cholecystitis Current Visit: Yes Status: Acute Code(s): K81.9 - CHOLECYSTITIS, UNSPECIFIED SNOMED Code(s): 73827705 Plan: Patient epigastric abdominal pain resolved. Additionally, left lower quadrant pain moderately improved. He has been able to tolerate diet. Patient's case was canceled. He may follow up as outpatient. Discharge today.
--- NOTE | 2017-08-19 13:14 | P.DS ---
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 Patient states the pain started 3 days prior to coming into the emergency room. Patient stated that he normally has a bowel movement every morning. Over the last several days developed frequent watery bowel movements. No blood noted. Increased abdominal cramping. Denied any prior episodes. States that over the last several days he had had a poor oral intake due to the abdominal pain. CAT scan of the abdomen pelvis done in the emergency room showed diverticulitis. Patient was started on IV Levaquin and Flagyl bowel rest was initiated additionally patient reported experiencing epigastric pain as well patient did have an ultrasound of the abdomen showed hepatomegaly. Patient denied drinking any alcohol. Additionally imaging was done and confirmed cholecystitis. Patient was seen by the dietitian received information about a diverticulitis as well as a low-fat diet. Patient declined having surgery for the chronic cholecystitis this admission. Patient stated at the time of discharge the left lower quadrant pain had resolved. The epigastric discomfort has significantly improved wanted to be discharged and would follow-up in the outpatient setting discuss treatment options for treating the chronic cholecystitis Patient was able to be ambulatory on the unit tolerating a diet felt to be appropriate to be discharged on the day of discharge the white count was 7.1 electrolytes within normal limits AST and ALT were normal total bili not elevated Impression Present on admission left lower quadrant abdominal pain likely due to acute sigmoid diverticulitis with perforated diverticulum Present on admission mild leukocytosis suspect reactive Present on admission nausea vomiting frequent stooling suspect due to acute sigmoid diverticulitis with perforated diverticulum CAT scan abdomen and pelvis images show possible diverticulitis with free air near the sigmoid and descending colon Asthma with no evidence of an exacerbation Active current every day smoker imaging studies confirm chronic cholecystitis Ultrasound abdomen demonstrating hepatomegaly Present on admission epigastric pain suspect due to chronic cholecystitis Asthma no evidence of an exacerbation mild The above impression and plan of care have been discussed and directed by signing physician. Mariaelena Shafer nurse practitioner acting as scribe for signing physician. Patient Condition at Discharge: Serious Plan - Discharge Summary New Discharge Prescriptions: New Levofloxacin [Levaquin] 750 mg PO HS 7 Days #7 tab metroNIDAZOLE [Flagyl] 500 mg PO TID #21 tab Continue Ipratropium/Albuterol Sulfate [Combivent Respimat Inhaler] 1 puff INHALATION RT-QID #1 mist.inhal Albuterol Inhaler [Ventolin Hfa Inhaler] 2 puff INHALATION RT-Q6H PRN #3 puff PRN Reason: Shortness Of Breath Dexlansoprazole [Dexilant] 60 mg PO DAILY #90 cap.bp Discharge Medication List Albuterol Inhaler [Ventolin Hfa Inhaler] 2 puff INHALATION RT-Q6H PRN #3 puff [Rx] Dexlansoprazole [Dexilant] 60 mg PO DAILY #90 cap.bp 08/19/17 [Rx] Ipratropium/Albuterol Sulfate [Combivent Respimat Inhaler] 1 puff INHALATION RT- QID #1 mist.inhal 08/19/17 [Rx] Levofloxacin [Levaquin] 750 mg PO HS 7 Days #7 tab 08/19/17 [Rx] metroNIDAZOLE [Flagyl] 500 mg PO TID #21 tab 08/19/17 [Rx] Follow up Appointment(s)/Referral(s): Marli Corona MD [STAFF PHYSICIAN] - 09/10/17 2:00 pm Cecy Mcgrath MD [Primary Care Provider] - 1-2 days (patient to call and make follow up appointment with Dr. Mcgrath's. The office is closed at time of discharge. ) Patient Instructions/Handouts: Albuterol (By breathing), Metronidazole (By mouth), Levofloxacin (By mouth), Ipratropium/Albuterol (By breathing), Dexlansoprazole (By mouth), Low Fat Diet (DC), Open Cholecystectomy (DC), Laparoscopic Cholecystectomy (DC) Activity/Diet/Wound Care/Special Instructions: Low-fat diet Dietitian provided patient with information regarding diverticulitis foods to avoid Patient's been advised to stop smoking cigarettes smoking cessation information provided may return to work after seen by Dr. corona follow-up visit return to the nearest emergency room if symptoms should recur Discharge Disposition: HOME SELF-CARE <Flex,Marli N - Last Filed: 08/19/17 13:58> - Discharge Diagnosis(es) (1) Sigmoid diverticulitis Current Visit: Yes Status: Acute (2) Left lower quadrant pain Current Visit: Yes Status: Acute (3) Epigastric abdominal pain Current Visit: Yes Status: Acute (4) Substernal pain Current Visit: Yes Status: Acute (5) Perforated diverticulum Current Visit: Yes Status: Acute (6) Cholecystitis Current Visit: Yes Status: Acute
[2017-08-19] MEDS ORDERED: metroNIDAZOLE 500 MG TAB PO SCH (16:00)
[2017-08-19] MEDS ORDERED: LEVOFLOXACIN 750 MG TAB PO SCH (21:00)
[2017-08-20] MEDS ORDERED: PANTOPRAZOLE 40 MG TABLET PO SCH (07:30)
== END 2017-08-19 14:00 | disposition home or self-care (01) | DRG 392 ==
LOC: EC 21:05 → 5MS5E 22:53
PROVIDERS: ADMIT Surgery Plastic and Reconstructive Surgery; ATTEND Surgery Plastic and Reconstructive Surgery
DX: K57.20 Diverticulitis of large intestine with perforation and abscess without bleeding (principal); K81.1 Chronic cholecystitis; K21.9 Gastro-esophageal reflux disease without esophagitis; J45.909 Unspecified asthma, uncomplicated; F17.210 Nicotine dependence, cigarettes, uncomplicated; R16.0 Hepatomegaly, not elsewhere classified; Z79.899 Other long term (current) drug therapy
CPT/HCPCS: 36415; 71046; 74177; 76705; 78226; 80048; 80053; 81003; 82150; 83690; 85025; 86850; 86900; 86901; 93005; 94640; 96361; 96374; 96375; 99285